=== PATIENT | female | born 1995 | race American Indian/Alaskan Native ===

== ENCOUNTER 2020-08-15 09:43 | Emergency (ER) | payer SELFPAY ==
[2020-08-15] MEDS ORDERED: KETOROLAC 30 MG/1 ML INJ IM ONE (10:29)
[2020-08-15] MEDS ORDERED: ONDANSETRON 4 MG/2 ML INJ IM ONE (10:29)
[2020-08-15] MEDS ORDERED: MORPHINE 4 MG/1 ML INJ IM ONE (10:31)
--- NOTE | 2020-08-15 10:33 | Emergency Department Report ---
<KIANA BAKER - Last Filed: 08/16/20 12:19> ED Female HPI - General Chief complaint: Abdominal Pain Stated complaint: ABDOMINAL PAIN Source: patient Mode of arrival: Ambulatory Limitations: No Limitations - History of Present Illness Initial comments: 25-year-old -[place] female presents to the emergency room for lower abdominal pain that started this morning. Patient states that she had vomited 4 times with diarrhea. Patient reports that is her endometriosis that is flaring up. Patient reports that she does not have a primary care provider or OB doctor as she recently relocated to this area. Patient states that she usually gets oxycodone from the hospital for her endometriosis. Review of [place] [facility] it appears that patient was last seen at the ER on 05/19/2024 and received 20 pills of oxycodone. MD Complaint: pelvic pain Onset/Timin -: days(s) Location: suprapubic Severity scale (0 -10): 10 Quality: sharp, stabbing Consistency: constant Improves with: medication Worsens with: none Are you Now?: No Last Menstrual Period: 07/30/20 EDC: 05/06/21 Associated Symptoms: abdominal pain. denies: vaginal discharge, vaginal bleeding - Related Data Sexually active: Yes (With women) Previous Rx's Medication Instructions Recorded Last Taken Type Ibuprofen [Motrin 800 MG tab] 800 mg PO Q8HR PRN #30 tablet 08/15/20 Unknown Rx Nitrofurantoin Gillespie/M-Cryst 100 mg PO Q12HR 10 Days #20 capsule 08/15/20 Unknown Rx [Macrobid CAP] Ondansetron [Zofran Odt] 4 mg PO Q8HR #12 tab.rapdis 08/15/20 Unknown Rx Allergies Allergy/AdvReac Type Severity Reaction Status Date / Time mushroom Allergy Swelling Verified 08/15/20 09:47 ED Review of Systems Comment: All other systems reviewed and negative ED Past Medical Hx - Past Medical History Additional medical history: endometrosis - Surgical History Past Surgical History?: No - Social History Smoking Status: Never Smoker - Medications Home Medications: Home Medications Medication Instructions Recorded Confirmed Last Taken Type Ibuprofen [Motrin 800 MG tab] 800 mg PO Q8HR PRN #30 tablet 08/15/20 Unknown Rx Nitrofurantoin Gillespie/M-Cryst 100 mg PO Q12HR 10 Days #20 capsule 08/15/20 Unknown Rx [Macrobid CAP] Ondansetron [Zofran Odt] 4 mg PO Q8HR #12 tab.rapdis 08/15/20 Unknown Rx ED Physical Exam - General Limitations: No Limitations General appearance: alert, in distress - Head Head exam: Present: atraumatic, normocephalic - Eye Eye exam: Present: normal appearance - ENT ENT exam: Present: mucous membranes moist - Respiratory Respiratory exam: Present: normal lung sounds bilaterally. Absent: respiratory distress - Cardiovascular Cardiovascular Exam: Present: regular rate, normal rhythm. Absent: systolic murmur, diastolic murmur, rubs, gallop - GI/Abdominal GI/Abdominal exam: Present: soft, tenderness, normal bowel sounds (Suprapubic). Absent: distended - Extremities Exam Extremities exam: Present: normal inspection, full ROM - Back Exam Back exam: Present: normal inspection - Neurological Exam Neurological exam: Present: alert, oriented X3, normal gait - Psychiatric Psychiatric exam: Present: normal affect, normal mood - Skin Skin exam: Present: warm, dry, intact, normal color. Absent: rash ED Course - Reevaluation(s) Reevaluation #1: 08/15/20 12:49 Patient states that the pain has improved but feels like it is coming back. Patient will get 1 more dose of morphine Zofran will be discharged home on ibuprofen and Zofran and a referral. ED Medical Decision Making - Medical Decision Making 25-year-old -[place] female presents to the emergency room for lower abdominal pain that started this morning. Patient states that she had vomited 4 times with diarrhea. Patient reports that is her endometriosis that is flaring up. Patient reports that she does not have a primary care provider or OB doctor as she recently relocated to this area. Patient states that she usually gets oxycodone from the hospital for her endometriosis. Review of [facility] it appears that patient was last seen at the ER on 05/19/2024 and received 20 pills of oxycodone. Patient is given IV with normal saline, IV Zofran and morphine and Toradol for pain management. Patient will be discharged home on ibuprofen 800 mg and referral to [facility]. ED Disposition Clinical Impression: Pelvic pain, Endometriosis Disposition: TO HOME OR SELFCARE Is pt being admited?: No Does the pt Need Aspirin: No Condition: Stable Instructions: Endometriosis, Abdominal Pain (ED) Additional Instructions: Take antibiotics as prescribed. Take your pain medication is very important to follow-up with an [facility]. Prescriptions: Nitrofurantoin Gillespie/M-Cryst [Macrobid CAP] 100 mg PO Q12HR 10 Days #20 capsule Ibuprofen [Motrin 800 MG tab] 800 mg PO Q8HR PRN #30 tablet PRN Reason: Pain , Severe (7-10) Ondansetron [Zofran Odt] 4 mg PO Q8HR #12 tab.rapdis Referrals: [facility] [Primary Care Provider] - 3-5 Days [facility] [Provider Group] - 3-5 Days [facility] [Provider Group] - 3-5 Days Forms: Work/School Release Form(ED) <CATARINO GIRARD - Last Filed: 08/16/20 22:22> ED Review of Systems ROS: Stated complaint: ABDOMINAL PAIN Other details as noted in HPI ED Course Vital Signs 08/15/20 08/15/20 08/15/20 09:48 12:16 13:03 Temperature 98.7 F Pulse Rate 77 Respiratory 18 18 18 Rate Blood Pressure 133/87 Blood Pressure [Right] O2 Sat by Pulse 96 Oximetry 08/15/20 14:52 Temperature Pulse Rate 80 Respiratory 18 Rate Blood Pressure Blood Pressure 127/89 [Right] O2 Sat by Pulse 99 Oximetry Critical care attestation.: If time is entered above; I have spent that time in minutes in the direct care of this critically ill patient, excluding procedure time. ED Disposition Is pt being admited?: No Does the pt Need Aspirin: No
[2020-08-15] MEDS ORDERED: ONDANSETRON 4 MG/2 ML INJ IV ONE ×2 (10:34→12:48)
[2020-08-15] MEDS ORDERED: MORPHINE 4 MG/1 ML INJ IV ONE ×2 (10:34→12:48)
[2020-08-15] MEDS ORDERED: KETOROLAC 30 MG/1 ML INJ IV ONE (10:34)
[2020-08-15] MEDS ORDERED: SODIUM CHLORIDE 0.9% 1000 ML 1,000 ML IV ONE (10:35)
[2020-08-15 14:11] LABS: Bacteria,Urine 1+ /HPF (Negative); Bilirubin,Urine NEG (Negative); Blood,Urine LG (Negative); Color,Urine Yellow (Yellow); Mucus,Urine FEW /HPF; Urobilinogen,Urine < 2.0 mg/dL (<2.0)
[2020-08-15 14:13] LABS: HCG Qualitative,Urine Negative (Negative)
[2020-08-15 14:16] LABS: RBC,Urine > 182.0 /HPF (0.0-6.0)
[2020-08-15 14:58] VITALS: BP 127/89
== END 2020-08-15 14:37 | disposition home or self-care (01) ==
LOC: ED 09:43
DX: R10.2 Pelvic and perineal pain (principal); N80.9 Endometriosis, unspecified; Z79.899 Other long term (current) drug therapy; Z88.8 Allergy status to other drugs, medicaments and biological substances
CPT/HCPCS: 81001; 81025; 87086; 96361; 96374; 96375; 96376; 99283; J1885; J2270; J2405; J7030